=== PATIENT | female | born 1995 | race Caucasian/White ===

== ENCOUNTER 2023-01-31 10:45 | Emergency (ER) | payer BC, SELFPAY ==
[2023-01-31 11:04] VITALS: BP 146/94; PULSE 84; RESP 22; TEMP 37; O2SAT 97; BMI 42.0
--- NOTE | 2023-01-31 11:25 | ED.GENADULT ---
HPI - General Adult General Time Seen by Provider: 11:25 Date Seen: 01/31/23 Chief complaint: Arrhythmia/Palpitations Stated complaint: irregular heartbeat Time Seen by Provider: 01/31/23 11:04 History of Present Illness HPI narrative: Pleasant 27-year-old female with no significant past medical history (but is self reported predilection for high anxiety) on no medications, who presents to the ER today with her mother and her boyfriend with concern for irregular heart rates. She has been feeling a bit off for the past couple of weeks. She has had spells where her Apple watch has told her there her rate is low (in the 50s) or high (up into the 130s). Sometimes the spells are associated with dizziness. Sometimes she gets palpitations. No chest pain. No shortness of breath. No syncope. This morning she was at work. She was pushing a cart down the hallway when she abruptly began to feel unsteady and off balance. She felt somewhat sweaty. She felt her heart thumping in her chest. She went to sit down. She began to feel anxious and her heart rate climbed up to about 130 or so. She checked her Apple watch shortly after the event and reported that her heart rate was down to the 50s. She thinks her normal resting/baseline heart rate is higher than that. She has no history of thyroid disease, cardiac arrhythmia. Her grandfather had heart valve disease and it sounds like he may have had a low ejection fraction before he . No family history of sudden . She does not take any medications. No control pills. Nonsmoker. Related Data Home Medications Medication Instructions Recorded Confirmed No Known Home Medications 01/31/23 01/31/23 Allergies Allergy/AdvReac Type Severity Reaction Status Date / Time house dust Allergy Mild Verified 01/31/23 11:19 [facility] Social History Smoking Status: Never smoker Do you use any of these nicotine containing products: None Second hand tobacco smoke exposure: No How often do you have a drink containing alcohol: never How often do you have six or more drinks on one occasion: Never AUDIT-C Alcohol total score: 0 Non-prescribed substance use: denies use service: No Exam Narrative: Exam Narrative: Constitutional: Appears well-developed and well-nourished. Alert. Conversant. Non toxic. HENT: Head: Atraumatic. Nose: Nose normal. Mouth/Throat: Oral mucosa is clear and moist. no trismus. Pharynx normal. Tonsils symmetric. No tonsillar enlargement, erythema, or exudate. Eyes: Conjunctivae normal. EOM normal. Pupils equal, round, and reactive to light. No scleral icterus. Neck: Normal range of motion. Neck supple. No tracheal deviation present. No thyromegaly Cardiovascular: Normal rate, regular rhythm. No gallop. No friction rub. No murmur heard. Symmetric radial and PT artery pulses Pulmonary/Chest: Effort normal. No stridor. No respiratory distress. No wheezes. No rales. No rhonchi . No tenderness. Abdominal: Soft. Bowel sounds normal. No distension. No mass. No tenderness. No rebound. No guarding. Musculoskeletal: RUE: Normal range of motion. No tenderness. No deformity LUE: Normal range of motion. No tenderness. No deformity RLE: Normal range of motion. No edema. No tenderness. No deformity LLE: Normal range of motion. No edema. No tenderness. No deformity Lymph: No cervical adenopathy. Neurological: Alert and oriented to person, place, and time. Normal strength. CN II-VII intact. No sensory deficit. GCS eye subscore is 4. GCS verbal subscore is 5. GCS motor subscore is 6. Normal coordination Skin: Skin is warm and dry. No rash noted. No pallor. Normal capillary refill. Psychiatric: Normal mood. Normal affect. Endorses that she tends to have high anxiety but she is polite and cooperative. She seems to have a high degree of insight into her anxiety. Const: Vital Signs, click to edit/add: Vital Signs - 24 hr 01/31/23 11:04 01/31/23 13:20 Temperature 98.6 F Pulse Rate [Right Pulse Oximeter] 84 72 Respiratory Rate 22 22 Blood Pressure [Ri ght Forearm] 146/94 H 125/78 Pulse Oximetry 97 100 Oxygen Delivery Me thod Room Air Room Air Course Vital Signs Vital signs: Initial Vital Signs Temperature 98.6 F 01/31/23 11:04 Temperature Source Temporal Artery Scan 01/31/23 11:04 Pulse Rate 84 01/31/23 11:04 Pulse Rhythm Regular 01/31/23 11:04 Respiratory Rate 22 01/31/23 11:04 Blood Pressure 146/94 H 01/31/23 11:04 Blood Pressure Mean 111 H 01/31/23 11:04 Blood Pressure Position Sitting 01/31/23 11:04 Pulse Oximetry 97 01/31/23 11:04 Oxygen Delivery Method Room Air 01/31/23 11:04 Vital Signs Temperature 98.6 F 01/31/23 11:04 Pulse Rate 84 01/31/23 11:04 Respiratory Rate 22 01/31/23 11:04 Blood Pressure 146/94 H 01/31/23 11:04 Pulse Oximetry 97 01/31/23 11:04 Oxygen Delivery Method Room Air 01/31/23 11:04 Temperature 98.6 F 01/31/23 11:04 Pulse Rate 72 01/31/23 13:20 Respiratory Rate 22 01/31/23 13:20 Blood Pressure 125/78 01/31/23 13:20 Pulse Oximetry 100 01/31/23 13:20 Oxygen Delivery Method Room Air 01/31/23 13:20 Medical Decision Making MDM Narrative Medical decision making narrative: This patient presents for evaluation of palpitations. Initial ECG shows normal sinus rhythm and no dysrhythmogenic abnormality such as WPW, prolonged QT, Brugada syndrome, and no ischemia. quality assurance monitor chassis while the patient here in the ER showed no dysrhythmia or ectopy. A broad differential diagnosis was considered including SVT, Atrial fibrillation, ventricular arrhythmia, thyroid disease, acute electrolyte abnormality, drugs/medications, caffeine intake or other stimulants, medication side effect, anemia, heart disease, PE, among others. The workup and exam here in ED shows not specific cause of the patient's palpitations, and no risks factors to warrant admission. Clinical judgement suggests that supportive outpatient management is indicated. Will recommend follow up with her primary care provider to arrange a Holter monitor. Return precautions reviewed.. Lab Data Labs: Lab Results 01/31/23 01/31/23 01/31/23 Range/Units 11:29 11:50 12:37 WBC 7.32 (4.50-11.00) K/uL RBC 4.51 (4.00-5.20) m/uL Hgb 14.3 (12.0-16.0) gm/dL Hct 42.4 (33.0-51.0) % MCV 94 (80-100) fL MCH 32 (26-34) pg MCHC 34 (32-36) gm/dL RDW Coeff of [place] 11.5 (11.5-15.5) % Plt Count 287 (140-440) K/uL Neut % (Auto) 52.2 (42.0-72.0) % Lymph % (Auto) 37.8 (20-44) % [place] % (Auto) 8.6 (0.0-11.0) % Eos % (Auto) 0.8 (0.0-7.0) % Baso % (Auto) 0.5 (0.0-3.0) % Neut # (Auto) 3.81 (1.7-7.0) K/uL Lymph # (Auto) 2.77 (0.90-2.90) K/uL [place] # (Auto) 0.60 (0.00-0.90) K/UL Eos # (Auto) 0.06 (0.00-0.50) K/uL Baso # (Auto) 0.04 (0.00-0.30) K/uL Abs Immat Gran (auto) 0.01 (0.00-0.30) K/uL Imm/Tot Granulo (auto) 0.1 % Sodium 141 (135-149) mmol/L Potassium 3.8 (3.6-5.1) mmol/L Chloride 106 (96-114) mmol/L Carbon Dioxide 25 (20-32) mmol/L Anion Gap 10 (7-15) mEq/L BUN 18 (5-24) mg/dL Creatinine 0.7 (0.5-1.5) mg/dL Estimated Creat Clear 100.75 Estimated GFR 122 ml/min Glucose 100 (60-115) mg/dL Calcium 9.3 (8.4-10.6) mg/dL Magnesium 2.2 (1.5-2.6) mg/dL Troponin I < 0.01 L (0.01-0.04) ng/mL TSH 1.220 (0.270-4.200) uIU/mL HCG, Qual Negative (Negative) Lab Acknowledgement Test Added ECG Data Attestation: I personally reviewed and interpreted this ECG as follows: Interpretation: Normal sinus rhythm with sinus arrhythmia. Rate 81 ME 140. No delta waves QRS axis normal axis. No pathologic Q-waves. ST segment/T wave: No acute ischemia. No U waves. QTc: 439 EKG 2. After walking challenge Normal sinus rhythm . Rate 84 ME 140 QRS axis normal axis. No pathologic Q-waves. ST segment/T wave: No ST segment elevation or depression. Nonspecific flattening V3-V6 QTc: 453 Discharge Plan Discharge Clinical Impression: Palpitations Patient Disposition: Home, Self-Care Condition: Stable Instructions: Heart Palpitations (DC) Additional Instructions: As we discussed, return to the ER immediately if you worsening symptoms such as chest pain, trouble breathing, further dizzy spells, persistent heart rate over 120 the last more than 5-10 minutes, or any concerns. Please follow-up with your clinic at [facility] within 1 week to arrange an outpatient Holter monitor. Prescriptions: No Action No Known Home Medications Follow Up/Referrals: Miranda Cope MD [Staff Physician] - Stand Alone Forms: [employer] Info Instructions
[2023-01-31 12:07] LABS: Basophils Absolute Auto 0.04 K/uL (0.00-0.30); Basophils Percent Auto 0.5 % (0.0-3.0); Eosinophils Absolute Auto 0.06 K/uL (0.00-0.50); Eosinophils Percent Auto 0.8 % (0.0-7.0); Hematocrit 42.4 % (33.0-51.0); Hemoglobin* 14.3 gm/dL (12.0-16.0); Immature Granulocytes Abs Auto 0.01 K/uL (0.00-0.30); Immature Granulocytes Pct Auto 0.1 %; Lymphocytes Absolute Auto 2.77 K/uL (0.90-2.90); Lymphocytes Percent Auto 37.8 % (20-44); Mean Corpuscular HGB Conc 34 gm/dL (32-36); Mean Corpuscular Hemoglobin 32 pg (26-34); Mean Corpuscular Volume 94 fL (80-100); Monocytes Percent Auto 8.6 % (0.0-11.0); Neutrophils Absolute Auto 3.81 K/uL (1.7-7.0); Neutrophils Percent Auto 52.2 % (42.0-72.0); Platelet Count* 287 K/uL (140-440); RDW Coefficient of Variation % 11.5 % (11.5-15.5); Red Blood Count 4.51 m/uL (4.00-5.20); White Blood Count* 7.32 K/uL (4.50-11.00)
[2023-01-31 12:11] LABS: Slide Review Reflex No
[2023-01-31 12:29] LABS: Chloride* 106 mmol/L (96-114); Potassium* 3.8 mmol/L (3.6-5.1); Sodium* 141 mmol/L (135-149)
[2023-01-31 12:32] LABS: Anion Gap 10 mEq/L (7-15); Blood Urea Nitrogen* 18 mg/dL (5-24); Carbon Dioxide* 25 mmol/L (20-32); Creatinine* 0.7 mg/dL (0.5-1.5); Est. Creatinine Clearance* 100.75; Estimated Glomerular Filt Rate 122 ml/min
[2023-01-31 12:33] LABS: Calcium* 9.3 mg/dL (8.4-10.6); Glucose* 100 mg/dL (60-115); Magnesium* 2.2 mg/dL (1.5-2.6)
[2023-01-31 12:45] LABS: Troponin I* < 0.01 ng/mL (0.01-0.04)
[2023-01-31 13:02] LABS: HCG Qualitative Serum* Negative (Negative)
[2023-01-31 13:20] VITALS: BP 125/78; PULSE 72; RESP 22; O2SAT 100
--- NOTE | 2023-01-31 13:54 | ED.NURSE ---
Pt ambulated around the ED long with tech with monitor on, pt's heart rate did not jump up to a higher rate than 95. She did explain that she did feel pressure while walking though.
== END 2023-01-31 14:05 | disposition home or self-care (01) ==
PROVIDERS: Emergency Provider Emergency Medicine; PCP Physician Assistant Medical
DX: R00.2 Palpitations (principal)
CPT/HCPCS: 36415; 80048; 83735; 84443; 84484; 84703; 85025; 93005; 99283; 99284